=== PATIENT | male | born 1960 | race Caucasian/White ===

== ENCOUNTER 2017-06-22 15:03 | Emergency (ER) | payer MEDICARE ==
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
[2017-06-22] MEDS ORDERED: Ketorolac 10 MG Tab PO ONE (16:24)
[2017-06-22] MEDS ORDERED: LORazepam 0.5 MG Tab PO ONE (16:25)
[2017-06-22] MEDS ORDERED: Alum Hydrox/Mag Hydrox/Simeth 15 ML, Lidocaine 2% 15 ML PO ONE ×2 (16:52)
[2017-06-22 17:03] VITALS: BP 118/87
== END 2017-06-22 17:52 | disposition home or self-care (01) ==
LOC: JP.ED 15:03
DX: S00.83XA Contusion of other part of head, initial encounter (principal); S10.93XA Contusion of unspecified part of neck, initial encounter; I10 Essential (primary) hypertension; F17.210 Nicotine dependence, cigarettes, uncomplicated; X58.XXXA Exposure to other specified factors, initial encounter; Z88.5 Allergy status to narcotic agent
CPT/HCPCS: 36415; 51798; 70450; 72125; 80053; 81001; 84484; 85025; 99284-25